=== PATIENT | female | born 1990 | race Hispanic/Latino ===

== ENCOUNTER 2020-10-12 08:26 | Day surgery (SDC) | payer OTHER ==
[2020-10-11 11:37] VITALS: BMI 38.2
[2020-10-12] MEDS ORDERED: Bupivacaine HCl 0.5%/Epinephrine 1:200,000/PF 30 ml Vial ONE (09:19)
[2020-10-12] MEDS ORDERED: PROPOFOL 200 MG/20 ML VIAL ONE (09:19)
[2020-10-12] MEDS ORDERED: Lidocaine 1% PF 5 ML VIAL ONE (09:19)
[2020-10-12] MEDS ORDERED: Ondansetron PF 4 MG/2 ML Vial ONE (09:19)
[2020-10-12] MEDS ORDERED: Ketorolac Tromethamine 30 MG/ML VIAL ONE (09:19)
[2020-10-12] MEDS ORDERED: Midazolam HCl 2 mg/2 ml Vial ONE (10:51)
[2020-10-12] MEDS ORDERED: Fentanyl 100 MCG/2 ML VIAL ONE (10:51)
[2020-10-12] MEDS ORDERED: Ondansetron ODT 4 MG TAB ONE (14:37)
== END 2020-10-12 15:00 | disposition home or self-care (01) ==
LOC: SDC 08:26
PROVIDERS: ATTEND Orthopaedic Surgery
PROC: 0PSJ04Z Reposition Left Radius with Internal Fixation Device, Open Approach (ICD-10-PCS; principal; 2020-10-12)
DX: S52.502A Unspecified fracture of the lower end of left radius, initial encounter for closed fracture (principal)
CPT/HCPCS: 76000; C1713; J0690; J1885; J2250; J2405; J2704; J3010; Q0162